=== PATIENT | female | born 1965 | race Caucasian/White ===

== ENCOUNTER 2017-05-24 05:26 | Emergency (ER) | payer BC, MEDICAID ==
[2017-05-24] MEDS ORDERED: Azithromycin 250 MG Tab PO ONE (05:27)
--- NOTE | 2017-05-24 06:23 | EDM.PDOC ---
ED HPI GENERAL MEDICAL PROBLEM - General Chief Complaint: Respiratory Problem Stated Complaint: UPPER RT SIDE PAIN Time Seen by Provider: 05/24/17 05:35 Source of Information: Reports: Patient History Limitations: Reports: No Limitations - History of Present Illness INITIAL COMMENTS - FREE TEXT/NARRATIVE: Nathalie comes to [facility] ED with a 5 week hx of cough, occasionally productive, and without fever, chills, sweats, wheezing or SOB. More recently over the past 2 days she has been experiencing R anterior chest pain with cough or sneezing. There has been no change in sputa. She is a long time smoker, and has not stopped. She has taken Tylenol for sxs relief. R chest, rib & back Pain Score (Numeric/FACES): 8 - Related Data Allergies Allergy/AdvReac Type Severity Reaction Status Date / Time No Known Allergies Allergy Verified 05/24/17 05:42 Home Meds: Home Meds Citalopram [Citalopram Hbr] 40 mg PO DAILY 05/24/17 [History] Diclofenac Sodium [IJD: Diclofenac Sodium] 75 mg PO BID 05/24/17 [History] Hydrochlorothiazide [Hydrochlorothiazide] 25 mg BID 05/24/17 [History] Spironolactone [Spironolactone] 50 mg BID 05/24/17 [History] amLODIPine [Norvasc] 2.5 mg DAILY 05/24/17 [History] traZODone 100 mg PO BEDTIME 05/24/17 [History] Past Medical History Cardiovascular History: Reports: Hypertension Gastrointestinal History: Reports: Cholelithiasis Genitourinary History: Reports: 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: Musculoskeletal History: Reports: Arthritis, Other (See Below) Other Musculoskeletal History: DJD Psychiatric History: Reports: Depression Endocrine/Metabolic History: Reports: Hypothyroidism, Obesity/BMI 30+ - Infectious Disease History Infectious Disease History: Reports: Chicken Pox - Past Surgical History GI Surgical History: Reports: Appendectomy, Bariatric Procedure, Cholecystectomy Female Surgical History: Reports: Section Other Female Surgeries/Procedures: CS x 1 Musculoskeletal Surgical History: Reports: None Social & Family History - Family History Family Medical History: Noncontributory - Tobacco Use Smoking Status *Q: Current Every Day Smoker Years of Tobacco use: 30 Packs/Tins Daily: 0.4 - Caffeine Use Caffeine Use: Reports: Coffee, Soda - Alcohol Use Days Per Week of Alcohol Use: 4 Number of Drinks Per Day: 4 Total Drinks Per Week: 16 - Recreational Drug Use Recreational Drug Use: No ED ROS GENERAL - Review of Systems Review Of Systems: See Below Constitutional: Reports: Malaise HEENT: Reports: Other (nasal discharge, with occ BRB streaked from L nares) Respiratory: Reports: Cough, Sputum, Other (right anterior chest pains) Cardiovascular: Reports: Chest Pain Endocrine: Reports: No Symptoms GI/Abdominal: Reports: No Symptoms : Reports: No Symptoms Musculoskeletal: Reports: No Symptoms Skin: Reports: No Symptoms Neurological: Reports: No Symptoms Psychiatric: Reports: No Symptoms Hematologic/Lymphatic: Reports: No Symptoms Immunologic: Reports: No Symptoms ED EXAM, GENERAL - Physical Exam Exam: See Below Exam Limited By: No Limitations General Appearance: Alert, WD/WN, No Apparent Distress Eye Exam: Bilateral Eye: EOMI, Normal Inspection, PERRL Ears: Normal External Exam, Normal TMs Nose: Nasal Drainage, Clear Rhinorrhea, Other (dried blood in L nares) Throat/Mouth: Normal Inspection, Normal Lips, Normal Oropharynx, Normal Voice, No Airway Compromise Head: Atraumatic, Normocephalic Neck: Normal Inspection, Supple, Non-Tender, Full Range of Motion Respiratory/Chest: No Respiratory Distress, No Accessory Muscle Use, Decreased Breath Sounds, Rhonchi, Prolonged Expiration, Other (right chest: tenderness of #3 rib at costochondral junction, no deformity) Cardiovascular: Regular Rate, Rhythm, No Murmur GI/Abdominal: Soft, Non-Tender, No Organomegaly, No Distention, No Mass (Female) Exam: Deferred Rectal (Female) Exam: Deferred Back Exam: Normal Inspection, Full Range of Motion Extremities: Normal Inspection Neurological: Alert, Oriented, CN II-XII Intact, Normal Cognition, Normal Gait, No Motor/Sensory Deficits Psychiatric: Normal Affect, Normal Mood Skin Exam: Warm, Dry Lymphatic: No Adenopathy Course - Vital Signs Text/Narrative:: Nathalie remained stable at the [facility] ED, no meds administered. Her chest x ray noted no active infiltrates, normal cardiac size, increased AP diameter, thoracic spurring. Last Recorded V/S: Last Vital Signs Temp 36.6 C 05/24/17 05:30 Pulse 73 05/24/17 05:30 Resp 24 H 05/24/17 05:30 BP 120/72 05/24/17 05:30 Pulse Ox 97 05/24/17 05:30 - Orders/Labs/Meds Orders: Active Orders 24 hr Category Date Time Status Chest 2V [CR] Stat Exams 05/24/17 05:47 Taken Departure - Departure Time of Disposition: 06:28 Disposition: Home, Self-Care 01 Clinical Impression: Bronchitis Sprained rib Qualifiers: Encounter type: initial encounter Qualified Code(s): S23.41XA - Sprain of ribs , initial encounter - Discharge Information Referrals: Elli Hill PA [Primary Care Provider] - - Problem List & Annotations (1) Bronchitis SNOMED Code(s): 66105719 Code(s): J40 - BRONCHITIS, NOT SPECIFIED ACUTE OR CHRONIC Status: Acute Current Visit: Yes Annotation/Comment:: I dispensed a Z Jordon as directed, cough med of choice, hydration, and avoid cigarettes. (2) Sprained rib SNOMED Code(s): 988300080 Code(s): S23.41XA - SPRAIN OF RIBS, INITIAL ENCOUNTER Status: Acute Current Visit: Yes Annotation/Comment:: I suggested holding the Voltaren, and taking Ibuprofen 400-800 mg up to q 6hr prn for pain sxs, cough pillow, and rest. Avoid cigarettes. Qualifiers: Encounter type: initial encounter Qualified Code(s): S23.41XA - Sprain of ribs, initial encounter - Problem List Review Problem List Initiated/Reviewed/Updated: Yes - My Orders Last 24 Hours: My Active Orders 05/24/17 05:47 Chest 2V [CR] Stat - Assessment/Plan Last 24 Hours: My Active Orders 05/24/17 05:47 Chest 2V [CR] Stat Plan: Follow up with PCP if needed.
--- NOTE | 2017-05-24 10:39 | CR ---
INDICATION: Cough, shortness of breath. CHEST: PA and lateral views of the chest, 05/24/2017. No comparisons. The heart is normal in size and shape except for question of minimal left ventricular enlargement on the lateral view. The aorta is only minimally tortuous. Minimal calcification in the arch of the aorta is suggested. Bony structures and mediastinum were otherwise unremarkable. An active infiltrate or effusion was not identified. IMPRESSION: 1. No acute process. 2. Suggestion of early ASHD. MTDD
== END 2017-05-24 06:30 | disposition home or self-care (01) ==
LOC: FB.ED 05:26
DX: S23.41XA Sprain of ribs, initial encounter (principal); J40 Bronchitis, not specified as acute or chronic; I10 Essential (primary) hypertension; F32.9 Major depressive disorder, single episode, unspecified; E03.9 Hypothyroidism, unspecified; F17.210 Nicotine dependence, cigarettes, uncomplicated; Z79.899 Other long term (current) drug therapy; X58.XXXA Exposure to other specified factors, initial encounter
CPT/HCPCS: 71046; 99284; A9270

== ENCOUNTER 2018-08-07 13:17 | Emergency (ER) | payer MEDICAID ==
--- NOTE | 2018-08-07 13:35 | EDM.PDOC ---
ED HPI GENERAL MEDICAL PROBLEM - General Chief Complaint: ENT Problem Stated Complaint: NOSE BLEED Time Seen by Provider: 08/07/18 13:24 Source of Information: Reports: Patient History Limitations: Reports: No Limitations - History of Present Illness INITIAL COMMENTS - FREE TEXT/NARRATIVE: Presents with bilateral epistaxis x 30 minutes. Denies trauma or picking. Onset while eating salad. Patient has not yet take her HTN meds today. Denies bleeding disorder. Onset Date: 08/07/18 Onset Time: 13:00 Severity: Moderate - Related Data Allergies Allergy/AdvReac Type Severity Reaction Status Date / Time No Known Allergies Allergy Verified 04/12/18 12:21 Home Meds: Home Meds Citalopram [Citalopram HBr] 40 mg PO DAILY 05/24/17 [History] hydroCHLOROthiazide [Hydrochlorothiazide] 25 mg PO BID 05/24/17 [History] traZODone 100 mg PO BEDTIME 05/24/17 [History] Spironolactone 50 mg PO DAILY 08/07/18 [History] busPIRone HCl [Buspirone HCl] 15 mg PO DAILY 08/07/18 [History] cephALEXin [Keflex] 500 mg PO BID 3 Days #6 cap 08/07/18 [Rx] Past Medical History Cardiovascular History: Reports: Hypertension Gastrointestinal History: Reports: Cholelithiasis Genitourinary History: Reports: 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: Musculoskeletal History: Reports: Arthritis, Other (See Below) Other Musculoskeletal History: DJD Psychiatric History: Reports: Depression, Other (See Below) (Alcohol abuse) Endocrine/Metabolic History: Reports: Hypothyroidism, Obesity/BMI 30+ - Infectious Disease History Infectious Disease History: Reports: Chicken Pox - Past Surgical History GI Surgical History: Reports: Appendectomy, Bariatric Procedure, Cholecystectomy Female Surgical History: Reports: Section Other Female Surgeries/Procedures: CS x 1 Musculoskeletal Surgical History: Reports: None Social & Family History - Family History Family Medical History: Noncontributory - Tobacco Use Smoking Status *Q: Current Every Day Smoker Tobacco Use Within Last Twelve Months: Cigarettes - Caffeine Use Caffeine Use: Reports: Coffee, Soda - Alcohol Use Alcohol Use History: No - Recreational Drug Use Recreational Drug Use: No ED ROS ENT - Review of Systems Review Of Systems: ROS reveals no pertinent complaints other than HPI. ED EXAM, ENT - Physical Exam Exam: See Below Exam Limited By: No Limitations General Appearance: Alert, WD/WN, No Apparent Distress Nose: Active Bleeding (moderate active bleeding left nare, oozing of blood right nare) Mouth/Throat: Other (+posterior pharyngeal blood present) Head: Atraumatic, Normocephalic Neck: Full Range of Motion Respiratory/Chest: No Respiratory Distress Cardiovascular: Tachycardia (regular rhythm) Neurological: Alert, Normal Cognition Psychiatric: Normal Affect, Normal Mood Skin: Warm, Dry, Intact Course - Vital Signs Last Recorded V/S: Last Vital Signs Temp 36.2 C 08/07/18 13:17 Pulse 120 H 08/07/18 13:17 Resp 18 08/07/18 13:17 BP 150/102 H 08/07/18 13:17 Pulse Ox 97 08/07/18 13:17 - Orders/Labs/Meds Labs: Laboratory Tests 08/07/18 08/07/18 08/07/18 Range/Units 13:30 13:30 13:30 WBC 7.9 (4.5-12.0) X10-3/uL RBC 5.03 (3.23-5.20) x10(6)uL Hgb 15.5 (11.5-15.5) g/dL Hct 45.7 (30.0-51.3) % MCV 90.9 (80-96) fL MCH 30.8 (27.7-33.6) pg MCHC 33.9 (32.2-35.4) g/dL RDW 14.8 (11.5-15.5) % Plt Count 390 H (125-369) X10(3)uL MPV 8.5 (7.4-10.4) fL Neut % (Auto) 72.2 (46-82) % Lymph % (Auto) 17.2 (13-37) % [place] % (Auto) 8.4 (4-12) % Eos % (Auto) 1 (1.0-5.0) % Baso % (Auto) 1 (0-2) % Neut # (Auto) 5.6 (1.6-8.3) # Lymph # (Auto) 1.4 (0.6-5.0) # [place] # (Auto) 0.7 (0.0-1.3) # Eos # (Auto) 0.1 (0.0-0.8) # Baso # (Auto) 0.1 (0.0-0.2) # PT 9.9 (8.7-11.1) INR 1.02 (0.89-1.13) Sodium 137 (135-145) mmol/L Potassium 3.8 (3.5-5.3) mmol/L Chloride 100 D (100-110) mmol/L Carbon Dioxide 25 (21-32) mmol/L BUN 28 H D (7-18) mg/dL Creatinine 1.0 (0.55-1.02) mg/dL Est Cr Clr Drug Dosing TNP Estimated GFR (MDRD) 58 L (>60) BUN/Creatinine Ratio 28.0 H (9-20) Glucose 126 H (80-116) mg/dL Calcium 9.2 (8.6-10.2) mg/dL Total Bilirubin 0.4 (0.1-1.3) mg/dL AST 14 D (5-25) IU/L ALT 28 D (12-36) U/L Alkaline Phosphatase 76 (56-112) IU/L Total Protein 7.5 (6.0-8.0) g/dL Albumin 4.0 (3.5-5.2) g/dL Globulin 3.5 g/dL Albumin/Globulin Ratio 1.1 Meds: Medications Discontinued Medications Generic Name Dose Route Start Last Admin Trade Name Freq PRN Reason Stop Dose Admin Hydralazine HCl 10 mg 08/07/18 14:07 08/07/18 14:12 Apresoline IM 08/07/18 14:08 10 mg .ONCE ONE Administration - Re-Assessments/Exams Free Text/Narrative Re-Assessment/Exam: 08/07/18 14:51 Hemostasis achieved after insertion of bilateral anterior 5.5 cm rapid rhino. BP 137/86, HR 116 after Hydralazine 10mg IM. Departure - Departure Time of Disposition: 14:52 Disposition: Home, Self-Care 01 Condition: Good Clinical Impression: Anterior epistaxis Hypertension Qualifiers: Hypertension type: essential hypertension Qualified Code(s): I10 - Essential ( primary) hypertension - Discharge Information *PRESCRIPTION DRUG MONITORING PROGRAM REVIEWED*: No *COPY OF PRESCRIPTION DRUG MONITORING REPORT IN PATIENT NEW: Not Applicable Prescriptions: cephALEXin [Keflex] 500 mg PO BID 3 Days #6 cap Instructions: Nosebleed, [id number], Hypertension Referrals: Elli Hill PA [Primary Care Provider] - Forms: ED Department Discharge Additional Instructions: Fill prescription for Keflex and take as directed. Continue BP meds. Do not take any aspirin or NSAIDS. Follow up in 2 days for packing removal. Return to the ER if symptoms recur or worsen. ED EPISTAXIS PROCEDURES - Epistaxis Procedure Indication: Epistaxis Recent anticoagulants/antiplatlets: No Uncontrolled HTN: Yes Recent septal/nasal surgery: No Site of bleeding: Right Nare, Left Nare, Anterior Clearing of clots: Patient Blew Nose Ice pack to area: No Chemical cautery: Silver Nitrate Topical (right (unsuccessful)) Anterior Packing: Other (bilateral 5.5 cm rapid rhino) Complications: No
[2018-08-07] MEDS ORDERED: hydrALAZINE 20 MG/ML SDV IM ONE (14:07)
== END 2018-08-07 15:20 | disposition home or self-care (01) ==
LOC: FB.ED 13:17
DX: R04.0 Epistaxis (principal); I10 Essential (primary) hypertension; F32.9 Major depressive disorder, single episode, unspecified; E66.9 Obesity, unspecified; F17.210 Nicotine dependence, cigarettes, uncomplicated; Z79.899 Other long term (current) drug therapy; Z90.49 Acquired absence of other specified parts of digestive tract; Z98.84 Bariatric surgery status
CPT/HCPCS: 30903; 36415; 80053; 85025; 85610; 96374; 99283; J0360